=== PATIENT | male | born 1970 | race Caucasian/White ===

== ENCOUNTER 2017-07-20 08:55 | Emergency (ER) | payer MEDICAID, OTHER ==
[~2017-07-20] VITALS: Ht 190.5 cm; Wt 106.0 kg
[2017-07-20] MEDS ORDERED: ALBUTEROL/IPRATROPIUM 2.5MG/0.5MG, 3 ML NPPB SCH (10:00)
[2017-07-20] MEDS ORDERED: ALBUTEROL/IPRATROPIUM 2.5MG/0.5MG, 3 ML ONE (10:11)
[2017-07-20 12:02] VITALS: BP 139/81
== END 2017-07-20 12:19 | disposition home or self-care (01) ==
LOC: ED 12:13
DX: J20.8 Acute bronchitis due to other specified organisms (principal); B96.89 Other specified bacterial agents as the cause of diseases classified elsewhere; F31.9 Bipolar disorder, unspecified
CPT/HCPCS: 71020; 93005; 94640; 99284; J7512; J7620